=== PATIENT | female | born 1950 | race Caucasian/White ===

== ENCOUNTER 2020-03-27 17:26 | Emergency (ER) | payer SELFPAY ==
[~2020-03-27] VITALS: Ht 170.2 cm; Wt 86.2 kg
--- NOTE | 2020-03-27 17:26 | NUR ---
BIBA TAKEN TO BED 9
--- NOTE | 2020-03-27 18:09 | NUR ---
70 YEAR OLD FEMALE BROUGHT IN BY AMBULANCE WITH COMPLAINT ON SOB. RR 16, SPO2 97% ROOM AIR, BREATHING EVEN AND UNLABORED, CLEAR LUNG SOUNDS THROUGHOUT, PRODUCTIVE COUGH PRESENT, CLEAR SPUTUM. AO4, SKIN WARM AND DRY. BED IN LOWEST POSITION, LOCKED, X1 SIDERAIL UP. PATIENT PLACED ON MONITOR. ERMD AWARE. PMH - DM, HTN, HYPERLIPIDEMIA, HYPOTHYROID, PNA, CVA (2019, NO SYMPTOMS) ALLERGIES - STATINS, PENICILLIN
[2020-03-27] MEDS ORDERED: LEVALBUTEROL 1.25 MG/0.5 ML NEBU INH ONE (19:00)
[2020-03-27] MEDS ORDERED: LEVALBUTEROL 0.63 MG/3 ML NEBU INH ONE (19:00)
--- NOTE | 2020-03-27 19:15 | NUR ---
FLU, RSV, AND COVID SWABS SENT TO LAB.
--- NOTE | 2020-03-27 19:16 | NUR ---
RECEIVED TRANSFER OF CARE REPORT BY MIKHAIL SCHUSTER FOR CONTINUATION OF CARE.
--- NOTE | 2020-03-27 19:16 | NUR ---
PT FOUND IN SEMI-FOWLERS POSITION IN BED. PT IS AOX4. PT STATES NO DISTRESS. PT HAS EQUAL RISE AND FALL UPON RESPIRATIONS. PT DENIES OTHER MEDICAL COMPLAINTS. BED LOCKED IN LOWEST POSITION WITH 1 SIDE RAIL UP AND CALL LIGHT WITHIN REACH. WILL CONTINUE TO MONITOR.
--- NOTE | 2020-03-27 19:16 | NUR ---
REPORT GIVEN TO DOMINIK SCHUSTER, TRANSFER OF CARE AT THIS TIME
--- NOTE | 2020-03-27 19:16 | NUR ---
AM RN STATED UNABLE TO ESTABLISH IV. NO IV NEEDED AT THIS TIME. ER MD AWARE.
--- NOTE | 2020-03-27 19:18 | NUR ---
X-Ray at bedside.
[2020-03-27 19:30] LABS: BASOPHILS # (AUTO) 0.1 K/uL (0.00-0.22); BASOPHILS % (AUTO) 0.6 % (0.0-2.0); HEMATOCRIT 36.3 % (36-48); HEMOGLOBIN 11.8 g/dL (12.0-16.0); LYMPHOCYTES # (AUTO) 1.8 K/uL (2.5-16.5); LYMPHOCYTES % (AUTO) 15.6 % (20.5-51.1); MEAN CORPUSCULAR HEMOGLOBIN 27 pg (27-31); MEAN CORPUSCULAR HGB CONC 32 g/dL (33-37); MEAN CORPUSCULAR VOLUME 82.6 fL (80-94); MONOCYTES # (AUTO) 0.7 K/uL (0.8-1.0); MONOCYTES % (AUTO) 6.2 % (1.7-9.3); NEUTROPHILS # (AUTO) 8.8 K/uL (1.8-7.7); NEUTROPHILS % (AUTO) 77.6 % (42.2-75.2); PLATELET COUNT (AUTO) 315 K/uL (140-450); RED CELL DISTRIBUTION WIDTH 14.4 % (11.6-13.7); WHITE BLOOD COUNT (AUTO) 11.3 K/uL (4.8-10.8)
--- NOTE | 2020-03-27 19:38 | NUR ---
EKG PERFORMED AT BEDSIDE. EKG READS SINUS RHYTHM @ 74
[2020-03-27 19:50] LABS: APPEARANCE,URINE CLEAR (CLEAR); BILIRUBIN,URINE NEGATIVE (NEGATIVE); BLOOD, URINE NEGATIVE (NEGATIVE); COLOR,URINE YELLOW (YELLOW); LEUKOCYTE ESTERASE ,URINE NEGATIVE (NEGATIVE); NITRITE, URINE NEGATIVE (NEGATIVE); PH,URINE 5.5 (5.0-9.0); UGLUCOSE NEGATIVE (NEGATIVE)
[2020-03-27 19:50] LABS: C-REACTIVE PROTEIN QUANT 0.5 mg/dL (0.0-0.9)
[2020-03-27 19:52] LABS: FIBRINOGEN 309 mg/dL (200-400); PROTHROMBIN TIME 10.5 secs (10.8-13.4)
[2020-03-27 19:57] LABS: LACTATE DEHYDROGENASE 217 U/L (81-234)
[2020-03-27 19:58] LABS: RSV NEGATIVE (NEGATIVE)
[2020-03-27 19:58] LABS: ALBUMIN 4.1 g/dL (3.4-5.0); ANION GAP 12.5 (8-16); CARBON DIOXIDE 27.9 mmol/L (21-32); CREATININE 1.4 mg/dL (0.6-1.3); D-DIMER < 100 ng/ml (0-400); POTASSIUM 4.4 mmol/L (3.5-5.1); TOTAL BILIRUBIN 0.2 mg/dL (0.0-1.0)
[2020-03-27] MEDS ORDERED: NACL 0.9% 500 ML IV ONE (20:25)
--- NOTE | 2020-03-27 20:34 | NUR ---
Made ERMD aware that pt does not want an IV unless it can be placed via Ultrasound. Per ERMD cancel bolus NS order and provide pt with PO fluids.
[2020-03-27] MEDS ORDERED: ACETAMINOPHEN EXTRA STRENGTH 500 MG TAB PO ONE (20:35)
[2020-03-27] MEDS ORDERED: guaiFENesin 20 MG/ML UDC PO ONE (20:35)
[2020-03-27] MEDS ORDERED: KETOROLAC 15 MG/ML VIAL IM ONE (20:35)
--- NOTE | 2020-03-27 20:41 | NUR ---
PT UN-AVAILABLE AT THIS TIME FOR Tx PT WAS ALSO UN-AVAILABLE FOR Tx PREV WILL RETURNN AT A LATER TIME FOR BREATHING Tx
--- NOTE | 2020-03-27 22:00 | NUR ---
INFORMED ER MD THAT RT ADMINISTERED BREATHING TREATMENT AND RT DID NOT DOCUMENT.
[2020-03-27 22:57] VITALS: BP 128/68
--- NOTE | 2020-03-27 22:57 | NUR ---
[facility] WAS CALLED FOR PT TO BE TRANSPORTED TO [facility].
--- NOTE | 2020-03-27 22:57 | NUR ---
Patient discharged with v/s stable. Written and verbal after care instructions given and explained. Patient alert, oriented and verbalized understanding of instructions. Ambulatory with steady gait. All questions addressed prior to discharge. ID band removed. Patient advised to follow up with PMD. Rx of GUAFENESIN AND NAPROXEN given. Patient educated on indication of medication including possible reaction and side effects. Opportunity to ask questions provided and answered.
== END 2020-03-27 22:57 | disposition home or self-care (01) ==
LOC: MED 17:26
DX: J18.9 Pneumonia, unspecified organism (principal); E11.9 Type 2 diabetes mellitus without complications; I10 Essential (primary) hypertension; E07.9 Disorder of thyroid, unspecified; Z88.0 Allergy status to penicillin; Z20.828 Contact with and (suspected) exposure to other viral communicable diseases
CPT/HCPCS: 36415; 71045; 80053; 81003; 81025; 82550; 82553; 82728; 83605; 83615; 83880; 84484; 85025; 85379; 85384; 85610; 85730; 86140; 87040; 87086; 87420; 87426; 87804; 93005; 94640; 96372; 99285; J1885; J7614; U0003